=== PATIENT | female | born 1980 | race Caucasian/White ===

== ENCOUNTER 2017-08-11 15:21 | Emergency (ER) | payer SELFPAY ==
[~2017-08-11] VITALS: Ht 165.1 cm; Wt 75.2 kg
[2017-08-11 16:41] LABS: BASOPHIL (%) 0.8 % (0-1); BASOPHIL COUNT 0.1 K/uL (0-0.1); EOSINOPHIL (%) 1.6 % (0-5); EOSINOPHIL COUNT 0.1 K/uL (0-0.3); HEMATOCRIT 42.1 % (36.0-46.0); IMMATURE GRANULOCYTE (%) 0.4 % (0.0-0.7); LYMPHOCYTE (%) 18.5 % (15-42); LYMPHOCYTE COUNT 1.4 K/uL (1.0-2.8); MCH 29.8 PG (29.0-34.0); MCHC 33.3 G/DL (30.0-36.0); MCV 89.6 FL (83-99); MONOCYTE (%) 4.8 % (3-12); MONOCYTE COUNT 0.4 K/uL (0-0.8); NEUTROPHIL (%) 73.9 % (45-76); NEUTROPHIL COUNT 5.6 K/uL (1.8-6.4); PLATELET COUNT 334 K/uL (156-360); RBC DIS.WIDTH-CV 12.5 % (11.8-14.6); RBC DIS.WIDTH-SD 40.9 % (39-53); WHITE BLOOD COUNT 7.6 K/uL (4.1-10.2)
[2017-08-11 16:52] LABS: ALBUMIN 4.4 g/dL (3.2-4.8); CHLORIDE 107 mEq/L (99-109); POTASSIUM 4.3 mEq/L (3.7-5.4); SODIUM 140 mEq/L (136-147)
[2017-08-11 16:55] LABS: GLUCOSE 98 mg/dL (70-99); TOTAL PROTEIN 7.7 g/dL (6.4-8.3)
[2017-08-11 16:57] LABS: TOTAL BILIRUBIN 0.4 mg/dL (0.0-1.0)
[2017-08-11 16:58] LABS: ALKALINE PHOSPHATASE 88 IU/L (3-129); CREATININE 0.7 mg/dL (0.6-1.3); GFR ESTIMATE (CALCULATED) > 59 mL/min/; SERUM ETHYL ALCOHOL < 10 mg/dL
[2017-08-11 16:59] LABS: UREA NITROGEN (BUN) 13 mg/dL (9-23)
[2017-08-11 17:00] LABS: AST (GOT) 12 IU/L (2-34)
[2017-08-11 17:01] LABS: ALT (GPT) 11 IU/L (3-49); CREATINE KINASE 63 IU/L (1-294); TOTAL CK 63 IU/L (1-294)
[2017-08-11 17:02] LABS: TROP-I INTERPRETATION NEGATIVE; TROPONIN-I < 0.01 ng/mL (0.0-0.30)
[2017-08-11 17:10] LABS: QUANTITATIVE HCG < 4.0 MIU/ML
[2017-08-11 17:11] LABS: CK-MB 0.5 ng/mL (0.0-4.9); CKMB RELATIVE INDEX 0.8 (0.0-3.9)
[2017-08-11 18:20] VITALS: BP 113/80
== END 2017-08-11 18:20 | disposition home or self-care (01) ==
LOC: EME 15:21
PROVIDERS: Emergency Medicine
DX: R20.0 Anesthesia of skin (principal); R06.02 Shortness of breath; R42 Dizziness and giddiness; R41.0 Disorientation, unspecified; M62.838 Other muscle spasm; Z87.891 Personal history of nicotine dependence
CPT/HCPCS: 80053; 82550; 82553; 84484; 84702; 85025; 93005; 99281; 99284; G0480